=== PATIENT | female | born 1955 | race Caucasian/White ===

== ENCOUNTER → 2020-02-07 | Outpatient (CLI) | payer MEDICARE, OTHER ==
[~2020-02-07] MED LIST: ALPH300C PO; BLAC540C4 PO; CALC-570 PO; CANA100T PO; CARV6.2512 PO; CHOL100014 PO; CINN500C2 PO; DULO60CA7 PO; FENO145T32 PO; GUAI12003 PO; LEVO750T26 PO; LIRA0.6P INJ; METF10002 PO; NIAC1000 PO; OMEG1CAP34 PO; ONE A DAY WOMEN'S PO; VALS1TAB3 PO
== END | disposition home or self-care (01) ==
LOC: RAD 17:02
PROVIDERS: ATTEND Psychiatry & Neurology Neurology
DX: S12.490A Other displaced fracture of fifth cervical vertebra, initial encounter for closed fracture (principal); S12.590A Other displaced fracture of sixth cervical vertebra, initial encounter for closed fracture; M47.12 Other spondylosis with myelopathy, cervical region; M48.02 Spinal stenosis, cervical region; X58.XXXA Exposure to other specified factors, initial encounter; Y93.89 Activity, other specified; Y92.89 Other specified places as the place of occurrence of the external cause; Y99.8 Other external cause status
CPT/HCPCS: 72141

== ENCOUNTER 2020-02-22 13:18 | Outpatient (CLI) | payer MEDICARE, OTHER | END 2020-02-22 23:59 | disposition home or self-care (01) | LOC: RAD 13:18 | PROVIDERS: ATTEND Orthopaedic Surgery | DX: M48.02 Spinal stenosis, cervical region (principal) | CPT/HCPCS: 72040 ==